=== PATIENT | male | born 1965 | race Caucasian/White ===

== ENCOUNTER 2023-04-29 10:05 | Outpatient (AMB) | payer BC, SELFPAY ==
--- NOTE | 2023-04-29 10:08 | A.OFFVIS_ITS ---
Intake Vital Signs 04/29/23 10:12 Height 6 ft 6 in Weight 294 lb BMI 34.0 BP 102/68 Blood Pressure Location Lt brachial Position Sitting Pulse 69 Pulse Source Pulse Oximeter Pulse Oximetry (%) 96 Oxygen Delivery Method Room Air Intake Visit Reasons: ENP-EDELMIRA/ Day fatigue - LVM Intake Note: NPV for evaluation of edelmira [employer] Required: No Allergies No Known Allergies Allergy (Verified 04/29/23 10:08) HPI HPI Comments History of Present Illness Details 57 y/o male patient presents for new in- person visit for sleep consultation. Pt reports that he had a PSG sleep study in 2017 and was told that the sleep study result was normal, no sleep apnea. Pt thinks that he was diagnosed with PLMD. Pt reports increased symptoms, loud snoring, difficulty staying sleep, daytime sleepiness and morning headache. Sleep questionnaire: Have you ever been diagnosed with a sleep disorder? Yes, PLMD. Have you ever had a sleep study in the past? Yes, 2017. Have you ever been treated for a sleep disorder? No. Do you take medications for a sleep disorder? Recently tried marijuana gummy. Do you snore? Yes. Do you wake up gasping at night? No. Do you have episodes of apneas? No. If yes, are they witnessed? No. Do you have episodes of nocturnal chest pain or dyspnea? No. Do you have difficulty initiating sleep? No. Do you have difficulty maintaining sleep? Yes. roll over, having difficulty go back to sleep. Do you wake up tired? Yes. Do you have headaches upon awakening? Yes. Do you wake up with dry mouth or throat? Yes. Do you have GERD? No. Do you have nocturia? No. Do you have nocturnal leg cramps? No. Do you have symptoms of restless legs? No. Do you act out your dreams? No. Sleep hygiene questionnaire: What is your usual sleep routine? Usual bedtime is at 8:30-10:30; Usual wake up time is at 5-6 am . Do you take naps? No. Is your sleep environment cool, dark, and quiet? Yes. Do you exercise? No. Do you take caffeine or other stimulants? Coffee in the morning. Do you use electronics in bed? Yes. What is your work schedule? 8 am -5 pm. Hypersomnolence questionnaire: Do you have daytime tiredness or fatigue? Yes. Do you easily fall asleep when inactive? Yes. Have you ever had episodes of sudden weakness? No. Have you ever had episodes of sudden weakness associated with strong emotions? No. PFSH Surgical History (Updated 04/29/23 @ 10:10 by Belkis Squires CMA) H/O total knee replacement H/O spinal fusion Family History (Updated 04/29/23 @ 10:11 by Belkis Squires CMA) Father Diabetes COPD (chronic obstructive pulmonary disease) CHF (congestive heart failure), NYHA class I Social History (Updated 04/29/23 @ 10:12 by Belkis Squires CMA) Alcohol intake: current Alcohol intake frequency: holidays/special occasions only Patient Tobacco Use Status: Never used Tobacco Substance Use Type: Marijuana Review of Systems Const All systems reviewed & are unremarkable except as noted in HPI and below ENT Reports Normal hearing present Neuro Reports Normal hearing present Physical Exam Vital Signs: Last Vital Signs Pulse 69 04/29/23 10:12 BP 102/68 04/29/23 10:12 Pulse Ox 96 04/29/23 10:12 Oxygen Delivery Method Room Air 04/29/23 10:12 BMI result Body Mass Index 34.0 Const General: cooperative Nutritional Appearance: obese Orientation/consciousness: patient oriented x3 Neck Neck: Yes full ROM and Yes supple Resp Effort & Inspection: normal respiratory effort and able to speak in complete sentences Neuro General: patient oriented x3 and gait normal Cranial nerves: Yes Bilaterally intact EOM present, Yes Normal facial strength present, Yes Midline tongue present, Yes Symmetric palate elevation present, Yes Normal hearing present, Yes Ability to bilaterally rotate head present and Yes Ability to bilaterally elevate shoulders present Cognition (Neuro): normal cognition Gait exam (Neuro): Normal gait present Motor exam (neuro): 5/5 motor strength present throughout, Pronator motor function not present and no tremor noted Psych Appearance: grossly normal Mental Status: mental status grossly normal Affect: normal affect Attitude: cooperative Assessment & Plan Assessment & Plan (1) Daytime sleepiness: Code(s): R40.0 - Somnolence (2) Snoring: Code(s): R06.83 - Snoring (3) Periodic limb movement: Code(s): G47.61 - Periodic limb movement disorder Plan Pt is advised to undergo home sleep study to assess for sleep apnea. Will f/u with pt after study to discuss results and appropriate treatment options. Sleep hygiene education provided, reduce or stop using marijuana gummy, it will cause disrupted sleep. Advised patient to try magnesium 400 mg qHS. Pt to call with any worsening concerns or questions. Orders: Orders RT home sleep study 04/29/23 R06.83 - Snoring, R40.0 - Somnolence Medications: New magnesium oxide 400 mg PO DAILY 30 days 30 tabs 2RF Coding Level of Care Code New Pt Level 3 (34379) Diagnoses Daytime sleepiness R40.0 Snoring R06.83 Periodic limb movement G47.61
[2023-04-29 10:12] VITALS: BP 102/68; PULSE 69; O2SAT 96; BMI 34.0
== END 2023-04-29 10:37 | disposition home or self-care (01) ==
PROVIDERS: PCP Internal Medicine; Visit Provider Nurse Practitioner Family
DX: R40.0 Somnolence (principal); R06.83 Snoring; G47.61 Periodic limb movement disorder
CPT/HCPCS: 99203

== ENCOUNTER → 2023-04-29 10:05 | Outpatient (BNVA) | payer BC, SELFPAY | PROVIDERS: PCP Internal Medicine; Visit Provider Nurse Practitioner Family ==

== ENCOUNTER → 2023-12-27 08:04 | Outpatient (REF) | payer BC, SELFPAY | LOC: HO.SL 08:04 | PROVIDERS: PCP Internal Medicine; Visit Provider Nurse Practitioner Family | DX: R40.0 Somnolence (principal); R06.83 Snoring | CPT/HCPCS: 95806 ==

== ENCOUNTER → 2023-12-27 08:37 | Outpatient (BNV) | payer BC, SELFPAY | PROVIDERS: PCP Internal Medicine; Visit Provider Psychiatry & Neurology Neurology | DX: R06.83 Snoring (principal); R40.0 Somnolence | CPT/HCPCS: 95806 ==